=== PATIENT | female | born 1950 | race Caucasian/White ===

== ENCOUNTER → 2018-01-18 | Outpatient (CLI) | payer OTHER ==
--- NOTE | 2018-01-19 16:23 | RADIOLOGY IMAGING REPORT ---
FACILITY: [facility] - [place] PATIENT NAME: DIANA BEAVER : [id number] MR: [id number] V: [id number] EXAM DATE: [id number] ORDERING PHYSICIAN: RAVI BRAVO TECHNOLOGIST: Devorah Hernandez PROCEDURE:BILATERAL DIGITAL SCREENING MAMMOGRAM WITH CAD ASSISTED INTERPRETATION & 3D TOMOSYNTHESIS COMPARISON:Prior mammograms 07/09/10 & priors to 11/13/03. INDICATIONS:SCREENING FINDINGS: Breast parenchyma is heterogeneously dense. There are no mammographic findings concerning for malignancy. No significant interval change. DIAGNOSTIC CATEGORY 1--NEGATIVE. RECOMMENDATIONS: ROUTINE MAMMOGRAM AND CLINICAL EVALUATION IN 1 YEAR. IMPRESSION: BIRADS 1: Negative. Dictated by: Josh Young on 01/19/2018 at 16:11 Transcribed by: REY on 01/19/2018 at 16:18 Approved by: Josh Young on 01/19/2018 at 16:22 [facility]
== END ==
LOC: MAMO 00:54
PROVIDERS: ATTEND Family Medicine
DX: Z12.31 Encounter for screening mammogram for malignant neoplasm of breast (principal)
CPT/HCPCS: 77063; 77067

== ENCOUNTER → 2018-09-15 | Outpatient (CLI) | payer MEDICARE, OTHER ==
--- NOTE | 2018-09-15 15:12 | RADIOLOGY IMAGING REPORT ---
FAC[place]: [facility] [place] PATIENT NAME: Bia Parrish : 1950 MR: [id number] V: [id number] EXAM DATE: [id number] ORDERING PHYSICIAN: RAVI BRAVO TECHNOLOGIST: Location: [facility] - [place] Patient: Bia Parrish : 1950 Visit/Account:[id number] Date of Sevice: 09/15/2018 DEXA Scan Clinical history: Postmenopausal osteoporosis. Comparison: DEXA scan from 05/06/2017. LUMBAR SPINE: The bone mineral density (BMD) measured from L1-L4 correlates with a Z-score of -0.2 and a T-score of -2 which is osteopenia as defined by the World Health Organization. The corresponding risk of fract ure in the lumbar spine is 4 times increased compared with a young adult reference population. This value has decrease by 1.4 % since the prior study. More than 5% change is considered significant. HIP: Bone mineral density (BMD) measured in the LEFT total hip region correlates with a Z-score 1.2 and a T-score of by 0.2 which is normal as defined by the World Health Organization. The corresponding risk of fracture in the hip is Not i ncreased compared to a young adult reference population. This value has increased by 2.5 % since the prior study. More than 5% change is considered significant. T score left femoral neck -0.7 Bone mineral density (BMD) measured in the Femoral Neck region measures 0.938 g/cm?. IMPRESSION: 1. Lumbar spine: Osteopenia. There has been 1.4% decrease in the bone mineral density since the pre vious exam. 2. Left Total Hip: Normal. There has been 2.5% increase in the bone mineral density since the previ ous exam. 3. Femoral Neck: Bone Mineral Density is 0.938 g/cm? The next DEXA scan of this patient should include the following sites: L1-L4 and the left hip. FRAX? WHO Fracture Risk Assessment Tool link: <http://www.shef.ac.uk/FRAX/tool.jsp?locationValue=9> PLEASE NOTE: 1) The World Health Organization defines low BMD as follows: T-score Normal > -1 Osteopenia < -1 and > -2.5 Osteoporosis < -2.5 without fractures Established osteoporosis < -2.5 with fractures 2) In general, you may wish to consider: Diagnosis Treatment Follow-up DEXA Normal BMD Prevention 2-3 years Osteopenia Prevention/therapy 1-2 years Osteoporosis Therapy Yearly 3) Fracture risk estimated from the T-score is more accurate for vertebral fractures (often spontane ous) than for hip fractures. Report Dictated By: Diann Ramos MD at 09/15/2018 3:06 PM Report E-Signed By: Diann Ramos MD at 09/15/2018 3:08 PM WSN:[email or web address]
== END ==
LOC: RAD 02:07
PROVIDERS: ATTEND Family Medicine
DX: M85.88 Other specified disorders of bone density and structure, other site (principal)
CPT/HCPCS: 77080

== ENCOUNTER → 2018-09-15 | Outpatient (CLI) | payer OTHER ==
[~2018-09-15] MED LIST: DENOSUMAB 60 MG/1 ML SYR SUBQ ONE
[2018-09-15 15:33] VITALS: BP 126/92
== END ==
LOC: SPU 08:25
PROVIDERS: ATTEND Family Medicine
DX: M81.0 Age-related osteoporosis without current pathological fracture (principal)
CPT/HCPCS: 96372; J0897